=== PATIENT | female | born 1960 | race Caucasian/White ===

== ENCOUNTER 2021-01-12 10:23 | Outpatient (REF) | payer BC, SELFPAY ==
--- NOTE | ~2021-01-12 | MM_ITS ---
EXAMINATION: MM SCREENING DIGITAL BREAST TOMOSYNTHESIS, BILATERAL CLINICAL INFORMATION: Screening. Asymptomatic. Family history breast cancer mother, age 70s and sister age 50s. Stereotactic INTACT biopsy 09/17/2017 (radial scar with papillary and florid ductal hyperplasia and focal atypical ductal hyperplasia). The lifetime risk of breast cancer based on the Tyrer-Cuzick Model is 29%. COMPARISON: Mammography: 10/26/2019, 10/30/2018, 10/22/2018, 09/17/2017, 08/29/2017, 08/18/2017, 06/24/2016 TECHNIQUE: Digital breast tomosynthesis is performed in both the craniocaudal and mediolateral oblique views along with computer-aided detection (CAD). Synthesized 2D images are generated from the tomosynthesis. FINDINGS: There are scattered areas of fibroglandular density (ACR BI-RADS breast composition Category b). There are no significant masses, abnormal calcifications, or other abnormalities. There is biopsy clip marker mid upper outer right breast. Parenchymal pattern is similar to prior studies. The axilla are unremarkable. Skin contours are smooth. No significant changes. MM/MM tomosynthesis screening BI IMPRESSION: No mammographic evidence of malignancy. ASSESSMENT: BI-RADS 1: Negative RECOMMENDATION: 1. Routine annual mammography screening. 2. The lifetime risk of breast cancer based on the Tyrer-Cuzick Model is 29%. Additional annual adjunct screening with breast MRI may be of benefit in women with a risk score of 20% or greater. This patient's information was entered into a reminder system with a target due date for their next mammogram.
== END 2021-01-12 10:24 | disposition home or self-care (01) ==
LOC: HO.MAMMO 10:23
PROVIDERS: Visit Provider Internal Medicine
DX: Z12.31 Encounter for screening mammogram for malignant neoplasm of breast (principal)
CPT/HCPCS: 77063; 77067

== ENCOUNTER 2022-04-30 13:03 | Outpatient (REF) | payer BC, SELFPAY ==
--- NOTE | ~2022-04-30 | MM_ITS ---
EXAMINATION: MM SCREENING DIGITAL BREAST TOMOSYNTHESIS, BILATERAL CLINICAL INFORMATION: Screening. Asymptomatic. Family history breast cancer, mother and sister. Prior history INTACT stereotactic biopsy 09/17/2017 (radial scar with papillary and florid ductal hyperplasia and focal atypical ductal hyperplasia). The lifetime risk of breast cancer based on the Tyrer-Cuzick Model is 21%. COMPARISON: Mammography: 01/12/2021, 10/26/2019, 10/30/2018, 10/22/2018 TECHNIQUE: Digital breast tomosynthesis is performed in both the craniocaudal and mediolateral oblique views along with computer-aided detection (CAD). Synthesized 2D images are generated from the tomosynthesis. FINDINGS: There are scattered areas of fibroglandular density (ACR BI-RADS breast composition Category b). There are no significant masses, abnormal calcifications, or other abnormalities. Parenchymal pattern is similar to prior studies. No developing density or interval architectural abnormality. Biopsy clip marker again noted right 11:00 position mid depth. MM/MM tomosynthesis screening BI IMPRESSION: No mammographic evidence of malignancy. ASSESSMENT: BI-RADS 2: Benign RECOMMENDATION: Routine annual mammography screening. This patient's information was entered into a reminder system with a target due date for their next mammogram.
== END 2022-04-30 13:04 | disposition home or self-care (01) ==
LOC: HO.MAMMO 13:03
PROVIDERS: PCP Nurse Practitioner Family; Visit Provider Internal Medicine
DX: Z12.31 Encounter for screening mammogram for malignant neoplasm of breast (principal)
CPT/HCPCS: 77063; 77067

== ENCOUNTER 2023-12-30 08:11 | Outpatient (REF) | payer BC, SELFPAY ==
--- NOTE | ~2023-12-30 | MM_ITS ---
EXAMINATION: MM SCREENING DIGITAL BREAST TOMOSYNTHESIS, BILATERAL CLINICAL INFORMATION: Screening. Asymptomatic. The patient is status post right breast stereotactic INTACT biopsy in August 2017 showing a radial scar and focal atypical ductal hyperplasia. COMPARISON: Mammography: This study is compared with prior exams dating back to 2019. TECHNIQUE: Digital breast tomosynthesis is performed in both the craniocaudal and mediolateral oblique views along with computer-aided detection (CAD). Synthesized 2D images are generated from the tomosynthesis. FINDINGS: There are scattered areas of fibroglandular density (ACR BI-RADS breast composition Category b). There are no significant masses, abnormal calcifications, or other abnormalities. There is a tissue marker in the upper outer quadrant of the right breast from prior percutaneous intervention. MM/MM tomosynthesis screening BI IMPRESSION: No mammographic evidence of malignancy. ASSESSMENT: BI-RADS BI-RADS 2 - Benign Findings RECOMMENDATION: Routine annual mammography screening. 1 year F/U This examination should not preclude the clinical evaluation of a suspicious palpable abnormality. This patient's information was entered into a reminder system with a target due date for their next mammogram.
== END 2023-12-30 08:12 | disposition home or self-care (01) ==
LOC: HO.MAMMO 08:11
PROVIDERS: PCP Nurse Practitioner Family; Visit Provider Nurse Practitioner Family
DX: Z12.31 Encounter for screening mammogram for malignant neoplasm of breast (principal)
CPT/HCPCS: 77063; 77067

== ENCOUNTER → 2023-12-30 08:15 | Outpatient (BNV) | payer BC, SELFPAY | PROVIDERS: PCP Nurse Practitioner Family; Visit Provider Radiology Diagnostic Radiology | DX: Z12.31 Encounter for screening mammogram for malignant neoplasm of breast (principal) | CPT/HCPCS: 77063; 77067 ==

== ENCOUNTER 2024-12-31 08:03 | Outpatient (REF) | payer BC, SELFPAY ==
--- OUTSIDE RECORDS SUMMARY | 2024-12-31 08:14 | XMS_ITS | Encounter Summary ---
Author Organization [facility] Address [address] [place] [address] Care Team Providers Care Rehabilitation Construction Specialist Name Role Phone Kimber Paulino NP Primary Care Provider [phone] Encounter Details Date Type Department Care Team (Latest Contact Info) Description 09/15/2024 Lab Requisition [facility] - Main Lab [address] [facility] [place] [id number] Zeinab Israel MD [address] [phone] Encounter for gynecological examination (general) (routine) without abnormal findings Social History Tobacco Use Types Packs/Day Years Used Date Smoking Tobacco: Never Assessed Comments Unknown Sex and Gender Information Value Date Recorded Sex Assigned at Female 08/26/2021 9:04 PM EST Legal Sex Female 9:26 PM EST Gender Identity Female 08/26/2021 9:04 PM EST Sexual Orientation Straight 08/26/2021 9: 04 PM EST documented as of this encounter Plan of Treatment Not on file documented as of this encounter Procedures Procedure Name Priority Date/Time Associated Diagnosis Comments PAP SMEAR Routine 09/14/2024 12:00 AM EST Encounter for gynecological examination (general) (routine) without abnormal findings documented in this encounter Results * Pap smear (09/14/2024 12:00 AM EST) Interpretation Negative for intraepithelial lesion or malignancy 09/23/2024 9:45 AM [facility] Clinical Information Hx of ASCUS 202209/23/2024 9:45 AM EST [facility] General Categorization Negative 09/23/2024 9:45 AM [facility] Specimen Adequacy Satisfactory for evaluation, endocervical/escamilla sformation zone component present 09/23/2024 9:45 AM [facility] Pap Methodology Liquid Based Pap Test 09/23/2024 9:45 AM [facility] Disclaimer The Pap test is a screening test which carries an inherent false negative rate. These test results should be correlated with the patient's clinical findings and history. This Pap test was processed using an automated screening system. Technical cytopathology services provided by [facility], at [address] [place] [address] (CLIA # [id number]/Lis Ferreira MD, Security Patrol Driver.) 09/23/2024 9:45 AM [facility] Console Pap Interpretation Reported 09/23/2024 9:45 AM [facility] Brushing/Spatula Cervix uteri structure / Unknown 09/14/2024 09/15/2024 7:57 AM EST us Zeinab Israel MD LAB CYTOLOGY ORDERABLES Final Result [facility] [address] [place] [address], documented in this encounter Visit Diagnoses Diagnosis Encounter for gynecological examination (general) (routine) without abnormal findings documented in this encounter Care Teams Rehabilitation Construction Specialist Relationship Specialty Start Date End Date Kimber Paulino NP [address] [place] [address] PCP - General Internal Medicine 10/27/24 documented as of this encounter
--- OUTSIDE RECORDS SUMMARY | 2024-12-31 08:14 | XMS_ITS | Clinical Summary ---
Author Organization [facility] Address [address] [place] [address] Care Team Providers Care Lens Gauger Name Role Phone Kimber Paulino NP Primary Care Provider [phone] Social History Tobacco Use Types Packs/Day Years Used Date Smoking Tobacco: Never Assessed Comments Unknown Sex and Gender Information Value Date Recorded Sex Assigned at Female 08/26/2021 9:04 PM EST Legal Sex Female 9:26 PM EST Gender Identity Female 08/26/2021 9:04 PM EST Sexual Orientation Straight 08/26/2021 9: 04 PM EST Plan of Treatment Health Maintenance Due Date Last Done Comments Breast Cancer Screening 1960 DTaP,Tdap,and Td Vaccines (1 - Tdap) 1981 Pneumococcal Vaccine: 50+ Years (1 of 1 - PCV) 2012 Zoster Vaccines (1 of 2) 2012 COVID-19 Vaccine (2023-2 5 season) 2024 Influenza Vaccine (#1) 2024 Depression Screening 10/26/2024 HIV Screening 10/26/2024 Hepatitis C Screening 10/26/2024 Social Influencers of Health Screening 10/26/2024 Cervical Cancer Screening: P ap Smear 09/14/2027 09/14/2024 Colorectal Cancer Screening: Colonoscopy 04/27/2034 04/27/2024, 01/25/2014 RSV Immunization Adult Patients (1 - 1-dose 75+ series) 2037 HIB Vaccines Aged Out No longer eligi ble based on patient's age to complete this topic HPV Vaccines Aged Out No longer eligi ble based on patient's age to complete this topic Hepatitis A Vaccines Aged Out No long er eligible based on patient's age to complete this topic Hepatitis B Vaccines Aged Out No long er eligible based on patient's age to complete this topic IPV Vaccines Aged Out No longer eligi ble based on patient's age to complete this topic MMR Vaccines Aged Out No longer eligi ble based on patient's age to complete this topic Meningococcal ACWY Vaccine Aged Out N o longer eligible based on patient's age to complete this topic Meningococcal B Vacine Aged Out No lo nger eligible based on patient's age to complete this topic Pneumococcal Vaccine: Pediatrics (0 to 5 Years) and At-Risk Patients (6 to 64 Years) Aged Out No longer eligible b ased on patient's age to complete this topic RSV Immunization Patients Under 20 months Aged Out No longer eligible b ased on patient's age to complete this topic Varicella Vaccines Aged Out No longer eligible based on patient's age to complete this topic Procedures Procedure Name Priority Date/Time Associated Diagnosis Comments PAP SMEAR Routine 09/14/2024 12:00 AM EST Encounter for gynecological examination (general) (routine) without abnormal findings COLONOSCOPY Routine 04/27/2024 10:13 AM EDT from Last 3 Months or Most Recently Relevant to Health Maintenance Results * Pap smear (09/14/2024 12:00 AM EST) Interpretation Negative for intraepithelial lesion or malignancy 09/23/2024 9:45 AM EST [facility] Clinical Information Hx of ASCUS 202209/23/2024 9:45 AM EST [facility] General Categorization Negative 09/23/2024 9:45 AM EST [facility] Specimen Adequacy Satisfactory for evaluation, endocervical/escamilla sformation zone component present 09/23/2024 9:45 AM EST [facility] Pap Methodology Liquid Based Pap Test 09/23/2024 9:45 AM EST [facility] Disclaimer The Pap test is a screening test which carries an inherent false negative rate. These test results should be correlated with the patient's clinical findings and history. This Pap test was processed using an automated screening system. Technical cytopathology services provided by [facility], at [address] [place] [address] (CLIA # [id number]/Lis Ferreira MD, Business Info Consultant.) 09/23/2024 9:45 AM EST [facility] Console Pap Interpretation Reported 09/23/2024 9:45 AM [facility] Brushing/Spatula Cervix uteri structure / Unknown 09/14/2024 09/15/2024 7:57 AM EST Zeinab Israel MD LAB CYTOLOGY ORDERABLES Final Result Performing Organization Address City/State/[facility] Co de Phone Number [facility] [address] [place] [address], * COLONOSCOPY (04/27/2024 10:13 AM EDT) Anatomical Region Laterality Modality Endoscopy Historical Provider GI~PROCEDURE ORDERABLES F inal Result from Last 3 Months or Most Recently Relevant to Health Maintenance Insurance [facility] ([facility]) Care Teams Lens Gauger Relationship Specialty Start Date End Date Kimber Paulino NP [facility] [place] [address] PCP - General Internal Medicine 10/27/24
== END 2024-12-31 08:04 | disposition home or self-care (01) ==
LOC: HO.MAMMO 08:03
PROVIDERS: PCP Nurse Practitioner Family; Visit Provider Nurse Practitioner Family
DX: Z12.31 Encounter for screening mammogram for malignant neoplasm of breast (principal)
CPT/HCPCS: 77063; 77067

== ENCOUNTER → 2024-12-31 08:15 | Outpatient (BNV) | payer BC, SELFPAY | PROVIDERS: PCP Nurse Practitioner Family; Visit Provider Internal Medicine | DX: Z12.31 Encounter for screening mammogram for malignant neoplasm of breast (principal) | CPT/HCPCS: 77063; 77067 ==